=== PATIENT | male | born 1975 | race Caucasian/White ===

== ENCOUNTER 2016-08-08 14:43 | Emergency (ER) | payer OTHER ==
[~2016-08-08] VITALS: Ht 182.9 cm; Wt 95.3 kg
[~2016-08-08 14:43] MED LIST: AMOXIL500 MG PO; IBU600 MG PO; TYLENOL #31 TAB PO
[2016-08-08 14:48] VITALS: BP 130/80
--- NOTE | 2016-08-08 15:14 | ED NECK/BACK PAIN COMPLAINT ---
History of Present Illness General Chief Complaint: Low Back Pain/Injury Stated Complaint: LBP/RADIATING DOWN LFT LEG Source: patient, old records Exam Limitations: no limitations Vital Signs & Intake/Output Vital Signs & Intake/Output Vital Signs Date Time Temp Pulse Resp B/P B/P Pulse O2 O2 Flow FiO2 Mean Ox Delivery Rate 08/08 1448 97.6 62 18 130/80 97 Room Air Room Air Allergies Coded Allergies: NO KNOWN ALLERGIES (04/26/14) Reconcile Medications Amoxicillin (Amoxil) 500 MG CAP 1 TAB PO TID STREP THROAT Ibuprofen (Ibu) 600 MG TAB 1 TAB PO Q6P PRN FEVER, PAIN Ibuprofen 800 MG TABLET 1 TAB PO TID PRN PAIN Methylprednisolone. (Medrol) 4 MG TAB.DS.PK 1 DP PO AD LUMBAR RADICUOLATPHY 6 on day 1 then reduce by one tablet daily until gone Oxycodone HCl/Acetaminophen (Percocet 5-325 MG Tablet) 5 MG-325 MG TABLET 1 TAB PO TID PRN pain Tylenol With Codeine (Tylenol With Codeine #3 Tablet) 300 MG-30 MG TABLET 1-2 TAB PO Q6 PRN SORE THROAT Triage Note: TRIAGE: 40 Y/O MALE PRESENTS C/O CHRONIC LOW BACK PAIN. REPORTS PAIN 10/01 AT PRESENT. Triage Nurses Notes Reviewed? yes Onset: Gradual Duration: day(s): (2), constant, waxing and waning Timing: recent history Quality/Severity: moderate Location: paraspinous muscles Radiation: buttocks, upper legs, lower legs Method of Injury: unknown Loss of Consciousness: no loss of consciousness Modifying Factors: movement Associated Symptoms: denies HPI: 40-year-old male presents to ER for evaluation complaining of left lower back pain radiating down his left lower extremity for the past 2 days. He's had history of similar pain in the past denies recent injury or trauma. He states that he was pulling soccer recently however feels as though he pulled his back is not taken anything for his symptoms. He had similar symptoms last month was prescribed a muscle relaxer tramadol and a Medrol Dosepak which helped. No abdominal pain no urinary bowel incontinence no dysuria urgency frequency fever chills abdominal pain weight loss no fever no chills. Pain is worse with change in position better with rest Past History Travel History Traveled to [place] past 21 day No Medical History Any Pertinent Medical History? 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 No Review of Systems Review of Systems Constitutional: Reports: see HPI. All Other Systems: Reviewed and Negative Comments Review of systems: See HPI, All other systems negative. Constitutional, no chills no fever, no malaise HEENT: No visual changes no sore throat no congestion, Cardiovascular: No chest pain , no palpitation Skin: no rashes, no change in skin Respiratory: No dyspnea no cough no sputum GI: No nausea no vomiting, no diarrhea, no bloating/constipation : No dysuria No hematuria, no frequency, no discharge Muscle skeletal: No joint pain, no joint swelling, back pain, no neck pain, Neurologic: No numbness no headache Psych: No stress Heme/endocrine: No bruising no bleeding Immunology: No lymphadenopathy Physical Exam Physical Exam General Appearance: well developed/nourished, no apparent distress, alert, awake Neck: normal inspection Comments: Well-developed well-nourished person in no acute distress HEENT: Normal EENT exam; PERRL, EOMI, HEAD is atraumatic. moist mucous membranes. Neck: Supple, normal range of motion Back: Nontender, no CVA tenderness. Full range of motion Cardiovascular: Regular rate and rhythms no murmurs rubs Respiratory: No respiratory distress. Patient speaking in full complete sentences. Breath sounds clear to auscultation bilaterally: NO W/R/R Abdomen: Soft, nontender nondistended, Extremity: No edema, full range of motion of extremities, positive straight leg raise to left lower extremity normal and equal pulses bilaterally, 5 out of 5 strength noted to bilateral upper and lower extremities Neuro: Alert oriented x3, motor sensory normal,There were no obvious focal neurologic abnormalities. Skin: No appreciable rash on exposed skin, skin is warm and dry. Psych: Mood and affect is normal, memory and judgment is normal. Progress Differential Diagnosis: cauda equina syn, herniated disc, myofascial strain, pyelo/UTI, spinal cord inj, thoracic outlet syn, T/L spine injury, ureterolithiasis Plan of Care: Patient clinically looks well. Patient has no evidence of radiculopathy. No urinary bowel dysfunction. No numbness in the genital area. Strength intact. Gross sensation intact. Patient resting comfortably and in no apparent distress. Pain is worse with range of motion. Pain is reproducible IN back with no bruising or ecchymosis noted. . Patient is to follow-up with primary care doctor. May need MRI of the lower back at some point time. No concerns for cauda equina at this point time. I considered this diagnosis but patient does not have any symptoms consistent with cauda equina. Patient has no secondary causes of back pain. No cardiac, pulmonary, or abdominal complaints. No abdominal pain on exam. Cardiac pulmonary exam within normal limits. No rashes, afebrile, denies recent weight loss, dizziness, lightheadedness Departure Departure Time of Disposition: 1522 Disposition: HOME OR SELF CARE Condition: Stable Clinical Impression Primary Impression: Low back strain Referrals: PATIENT HAS NO PRIMARY CARE DR (PCP/Family) MOSHE ARVIZU,[facility] Additional Instructions: REST, INTERCHANGE ICE AND HEAT. IBUPROFREN 800MG EVERY 8 HOURS. PERCOCET DIRECTED. THIS IS A NARCOTIC AND HIGHLY ADDICTIVE. NO DRIVING OR DRINKING ALCOHOL WHILE TAKING. MEDROL DOSE JESUS DIRECTED. THSEE WERE SENT TO [facility] FOLLOW UP WITH DR MESA PMD. Departure Forms: Customer Survey General Discharge Information Prescriptions: Current Visit Scripts Ibuprofen 1 TAB PO TID PRN PAIN #30 TAB Methylprednisolone. (Medrol) 1 DP PO AD #1 DP 6 on day 1 then reduce by one tablet daily until gone Oxycodone HCl/Acetaminophen (Percocet 5-325 MG Tablet) 1 TAB PO TID PRN pain #12 TAB
[2016-08-08] MEDS ORDERED: MEDROL4 M2 PO (15:26)
[2016-08-08] MEDS ORDERED: PERCOCET 5-3251 EACH PO (15:26)
[2016-08-08] MEDS ORDERED: IBUPROFEN800 M1 PO (15:26)
== END 2016-08-08 15:35 ==
LOC: ERH 14:43
DX: S39.012A Strain of muscle, fascia and tendon of lower back, initial encounter (principal); X58.XXXA Exposure to other specified factors, initial encounter; Y93.66 Activity, soccer; Y92.9 Unspecified place or not applicable

== ENCOUNTER 2016-09-02 22:35 | Emergency (ER) | payer OTHER ==
[~2016-09-02 22:35] MED LIST changes: +IBUPROFEN800 M1 PO; +MEDROL4 M2 PO; +PERCOCET 5-3251 EACH PO
--- NOTE | 2016-09-02 23:18 | RADIOLOGY REPORT ---
EXAMINATION: XR LUMBOSACRAL SPINE CLINICAL INFORMATION: Severe lower back pain. COMPARISON: None TECHNIQUE: AP and lateral views of the lumbosacral spine were obtained. FINDINGS: The vertebral bodies and posterior elements are normal. Vertebral body alignment is maintained. There is disc space narrowing at L4-L5 with small endplate osteophytes. The sacroiliac joints are intact. The bowel gas pattern is unremarkable. The paraspinal soft tissues are normal. IMPRESSION: Mild degenerative changes at L4-L5.
--- NOTE | 2016-09-03 00:47 | ED UPPER/LOWER EXTREMITY COMPL ---
History of Present Illness General Chief Complaint: Lower Extremity Problems Stated Complaint: PT HAS LOWER BACK PAIN Source: patient, old records Exam Limitations: language barrier Vital Signs & Intake/Output Vital Signs & Intake/Output Vital Signs Date Time Temp Pulse Resp B/P B/P Pulse O2 O2 Flow FiO2 Mean Ox Delivery Rate 09/02 2251 98.4 86 16 143/91 99 Room Air ED Intake and Output 09/03 0000 09/02 1200 Intake Total 100 Output Total Balance 100 Intake, Oral 100 Patient 210 lb Weight Weight Reported by Patient Measurement Method Allergies Coded Allergies: NO KNOWN ALLERGIES (04/26/14) Triage Note: 40 M WITH 10/10 CONSTANT RIGHT SIDED SEVERE LOW BACK PAIN SINCE August, WORSE TONIGHT EVEN AFTER TAKING MOTRIN, TRAMADOL AND FLEXERIL AND HOT PACKS. RADIATES DOWN RIGHT LEG. DENIES MITIGATING OR ALEVIATING FACTORS. SCHEDULED TO TAKE XRAY TOMORROW BUT UNABLE TO WAIT TO BE SEVERE PAIN, UNABLE TO SIT OR LAY DOWN, UNABLE TO GET COMFORTABLE. MEDICATED WITH TYLENOL PER eMAR AND XRAY ORDERED Triage Nurses Notes Reviewed? yes HPI: 40M no PMH with 2 weeks of incrementally worsening right sided lower back pain radiating to right leg. Patient appears very uncomfortable and in severe pain. He looks unable to sit normally due to the pain. The worst pain is in the right hip and right leg. He denies numbness, paresthesia, saddle paresthesia, incontinence. (MALICK ARVIZU,[facility]) Reconcile Medications Amoxicillin (Amoxil) 500 MG CAP 1 TAB PO TID STREP THROAT Cyclobenzaprine HCl 10 MG TABLET 1 TAB PO TID PRN muscle spasm Ibuprofen (Ibu) 600 MG TAB 1 TAB PO Q6P PRN FEVER, PAIN Ibuprofen 800 MG TABLET 1 TAB PO TID PRN pain Ibuprofen 800 MG TABLET 1 TAB PO TID PRN PAIN Methylprednisolone. (Medrol) 4 MG TAB.DS.PK 1 DP PO AD LUMBAR RADICUOLATPHY 6 on day 1 then reduce by one tablet daily until gone Oxycodone HCl/Acetaminophen (Percocet 5-325 MG Tablet) 5 MG-325 MG TABLET 1 TAB PO 4XDP PRN PAIN eight...[id number] Oxycodone HCl/Acetaminophen (Percocet 5-325 MG Tablet) 5 MG-325 MG TABLET 1 TAB PO TID PRN pain Tylenol With Codeine (Tylenol With Codeine #3 Tablet) 300 MG-30 MG TABLET 1-2 TAB PO Q6 PRN SORE THROAT (ALEENA ARVIZU,ALESSANDRA Santiago) Past History Travel History Traveled to [place] past 21 day No Medical History Any Pertinent Medical History? 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 No (ALESSANDRA FLOOD MD) Review of Systems Review of Systems Constitutional: Reports: no symptoms. EENTM: Reports: no symptoms. Respiratory: Reports: no symptoms. Cardiovascular: Reports: no symptoms. Gastrointestinal/Abdominal: Reports: no symptoms. Genitourinary: Reports: no symptoms. Musculoskeletal: Reports: see HPI. Skin: Reports: no symptoms. Neurological/Psychological: Reports: no symptoms. Hematologic/Endocrine: Reports: no symptoms. Immunological: Reports: no symptoms. All Other Systems: Reviewed and Negative (MEGHAN TERESA MD) Physical Exam Physical Exam General Appearance: well developed/nourished, mild distress Head: atraumatic Eyes: Bilateral: PERRL, EOMI. Ears, Nose, Throat: normal pharynx, normal ENT inspection, hearing grossly normal Neck: normal inspection, supple Cardiovascular/Respiratory: regular rate/rhythm Back: normal inspection, NO VERTEBRAL TENDERNESS, +RIGHT LUMBAR PARASPINAL TENDERNESS, STRAIGHT LEG TEST POSITIVE ON THE RIGHT AT 20 DEGREES. SENSATION AND MOTOR INTACT, REFLEXES 2+ BILATERALLY Skin: intact, normal color, warm/dry Lymphatic: no anterior cervical adelia (MEGHAN TERESA MD) Progress Differential Diagnosis: arterial insufficiency, cellulitis, CHF, compartment syndrome, contusion, dislocation, DVT, fracture, gout, septic arthritis, sprain, tendon injury Plan of Care: Current Medications Sig/Geremias Start time Last Medication Dose Stop Time Status Admin Hydromorphone HCl 1 MG ONCE ONE 09/03 229 UNVr (Dilaudid) 09/03 230 Departure Departure Condition: Stable Clinical Impression Primary Impression: Sciatica Referrals: PATIENT HAS NO PRIMARY CARE DR (PCP/Family) Departure Forms: Customer Survey General Discharge Information (MALICK ARVIZU,[place]AN) Departure Disposition: HOME OR SELF CARE Prescriptions: Current Visit Scripts Ibuprofen 1 TAB PO TID PRN pain #30 TAB Oxycodone HCl/Acetaminophen (Percocet 5-325 MG Tablet) 1 TAB PO 4XDP PRN PAIN #8 TAB eight...[id number] Cyclobenzaprine HCl 1 TAB PO TID PRN muscle spasm #30 TAB Ref 1 Comments 09/03/16, 2:18AM.... XRAY showed mild djd. pt still uncomfortable but with normal neurologic exam. pt safe for discharge... gave rx for ibuprofen, percocet, flexeril and advocated close followup. (ALEENA ARVIZU,ALESSANDRA Santiago)
[2016-09-03] MEDS ORDERED: CYCLOBENZAPRINE10 M1 PO (01:11)
[2016-09-03] MEDS ORDERED: IBUPROFEN800 M1 PO (01:11)
[2016-09-03] MEDS ORDERED: PERCOCET 5-3251 EACH PO (01:11)
[2016-09-03] MEDS ORDERED: MEDROL4 M2 PO (04:05)
[2016-09-03 04:19] VITALS: BP 132/84
== END 2016-09-03 04:23 ==
LOC: ERH 22:35
DX: M54.41 Lumbago with sciatica, right side (principal)
CPT/HCPCS: 72100; 96372; J1100; J1885; J3101